=== PATIENT | male | born 1955 | race Caucasian/White ===

== ENCOUNTER 2023-12-18 14:03 | Emergency (ER) | payer OTHER, SELFPAY ==
[2023-12-18 14:33] VITALS: BP 159/74; PULSE 60; O2SAT 100
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
[2023-12-18 14:42] VITALS: BP 161/85; PULSE 56; RESP 16; O2SAT 96; BMI 21.5
[2023-12-18 16:17] VITALS: BP 00/00; PULSE 0; RESP 0; TEMP -17.7; TEMP 0; O2SAT 0
== END 2023-12-18 16:18 | disposition home or self-care (01) ==
PROVIDERS: Emergency Provider Emergency Medicine; PCP Internal Medicine
DX: R51.9 Headache, unspecified (principal)
CPT/HCPCS: 99282